=== PATIENT | male | born 1970 | race Caucasian/White ===

== ENCOUNTER 2019-03-16 12:12 | Emergency (ER) | payer OTHER ==
[2019-03-16] MEDS ORDERED: LIDOCAINE 1% INJ 10MG/ML (20 ML MDV) SQ ONE (12:41)
--- NOTE | 2019-03-16 12:44 | ED ---
Wound/Laceration HPI - General Chief Complaint: Wound/Laceration Stated Complaint: IHS-Thumb Lac Time Seen by Provider: 03/16/19 12:27 Source: patient, RN notes reviewed, old records reviewed Mode of arrival: ambulatory Limitations: no limitations - History of Present Illness Initial Comments: Patient is a 49-year-old male presents emergency department today for right thumb laceration. Patient reports that he was taking A furnace, and the furnace was falling. He attempted to grab it and cut the interphalangeal joint of his right thumb on this. He complains of some numbness to the distal fingertip. Patient states that he has full range of motion of the thumb. He is right- handed. Tetanus shot is up-to-date. - Related Data Home Medications Medication Instructions Recorded Confirmed amLODIPine BESYLATE [Norvasc] 10 mg PO DAILY 03/31/14 09/20/14 Allergies Allergy/AdvReac Type Severity Reaction Status Date / Time lisinopril Allergy Cough Verified 03/16/19 12:18 Review of Systems ROS Statement: Those systems with pertinent positive or pertinent negative responses have been documented in the HPI. ROS Other: All systems not noted in ROS Statement are negative. Past Medical History Past Medical History: Hypertension History of Any Multi-Drug Resistant Organisms: None Reported Additional Past Surgical History / Comment(s): testicle surgery as infant Past Psychological History: No Psychological Hx Reported Smoking Status: Never smoker Past Alcohol Use History: None Reported Past Drug Use History: None Reported General Exam - General Exam Comments Initial Comments: This is a pleasant 49-year-old male. Alert and oriented. No distress. Limitations: no limitations General appearance: alert, in no apparent distress Head exam: Present: atraumatic, normocephalic, normal inspection Eye exam: Present: normal appearance ENT exam: Present: normal exam, mucous membranes moist Neck exam: Present: normal inspection. Absent: tenderness, meningismus, lymphadenopathy Respiratory exam: Present: normal lung sounds bilaterally. Absent: respiratory distress, wheezes, rales, rhonchi, stridor Cardiovascular Exam: Present: regular rate, normal rhythm, normal heart sounds. Absent: systolic murmur, diastolic murmur, rubs, gallop, clicks GI/Abdominal exam: Present: soft, normal bowel sounds. Absent: distended, tenderness, guarding, rebound, rigid Extremities exam: Present: normal inspection, full ROM, normal capillary refill, other (Patient has a 3 cm laceration over the DIP of the right thumb. Patient has full range of motion. Capillary refill less than 2 seconds. No evidence of retained foreign bodies. Laceration is linear and appears clean.). Absent: tenderness, pedal edema, joint swelling, calf tenderness Back exam: Present: normal inspection Neurological exam: Present: alert, oriented X3, CN II-XII intact Psychiatric exam: Present: normal affect, normal mood Skin exam: Present: warm, dry, intact, normal color. Absent: rash Course Vital Signs 03/16/19 12:17 Temperature 97.6 F Pulse Rate 61 Respiratory 16 Rate Blood Pressure 137/88 O2 Sat by Pulse 99 Oximetry Procedures - Laceration Laceration #1 Site: hand ( RIght thumb DIP.) Size (cm): 3 Description: linear Depth: simple, single layer Anesthetic Used: lidocaine 1% Anesthesia Technique: local infiltration Amount (mls): 3 Pre-repair: wound explored, irrigated extensively Type of Sutures: nylon Size of Sutures: 5-0 Number of Sutures: 5 Technique: simple, interrupted Patient Tolerated Procedure: well, no complications Medical Decision Making - Medical Decision Making Patient is a 49-year-old male presents returns today with a right thumb laceration. Patient was picking up a furnace, and slipped. The metal edge cut the DIP of his right thumb. Laceration was thoroughly irrigated with water and iodine. Wound was closed with sutures. Discussed keeping thumb straight and to avoid any infection. His tetanus is up-to-date. X-ray shows no fracture dislocation or retained foreign body. Patient is agreeable treatment plan will comply. Return parameters were discussed.\ - Radiology Data Radiology results: report reviewed No fracture dislocation right thumb. Disposition Clinical Impression: Thumb laceration Disposition: HOME SELF-CARE Condition: Good Instructions (If sedation given, give patient instructions): Laceration (ED) Additional Instructions: Please return to the emergency room in 8-10 days to have sutures removed. Please leave wound covered for the first 24-48 hours and then leave open to air after that time. Please use clean soap and water to clean the suture area to prevent scabbing over the top of your sutures. Please watch for any signs of infection which may include but not limited to increased pain, swelling, redness, fever or chills. Please return to the emergency room if any signs of infection do occur. Please return to the emergency room for any other concerns or complications. Is patient prescribed a controlled substance at d/c from ED?: No Referrals: Kimmy Vincent MD [Primary Care Provider] - 1-2 days Time of Disposition: 14:02
--- NOTE | 2019-03-16 13:34 | XR ---
EXAMINATION TYPE: XR finger RT DATE OF EXAM: 03/16/2019 COMPARISON: NONE HISTORY: Right thumb laceration and pain TECHNIQUE: 3 views of the right thumb were obtained FINDINGS: No acute fracture or dislocation is seen of the right thumb. No radiopaque foreign body. No subcutaneous emphysema. First carpometacarpal joint maintains alignment. IMPRESSION: No acute fracture or dislocation of the right thumb.
[2019-03-16 14:37] VITALS: BP 129/75; PULSE 70; RESP 17; TEMP 98.1
== END 2019-03-16 14:35 | disposition home or self-care (01) ==
LOC: EC 12:12
DX: S61.011A Laceration without foreign body of right thumb without damage to nail, initial encounter (principal); I10 Essential (primary) hypertension; Z79.899 Other long term (current) drug therapy; Z88.8 Allergy status to other drugs, medicaments and biological substances; W26.8XXA Contact with other sharp object(s), not elsewhere classified, initial encounter; Y93.89 Activity, other specified; Y99.0 Civilian activity done for income or pay
CPT/HCPCS: 73140; 99283; 12002; J2001